=== PATIENT | male | born 1970 | race Asian ===

== ENCOUNTER 2024-07-10 04:11 | Emergency (ER) | payer BC, SELFPAY ==
[2024-07-10 04:16] VITALS: BP 127/99; BMI 28.0
[2024-07-10 04:50] LABS: Hematocrit 42.7 % (39.0-52.0); Hemoglobin 15.2 g/dL (13.0-18.0); Mean Corp Hgb Conc. 35.6 g/dL (33.0-37.0); Mean Corpuscular Hgb 31.8 pg (27.0-31.0); Mean Corpuscular Volume 89.3 fL (80.0-94.0); Mean Platelet Volume 9.9 fL (7.4-10.4); Platelet Count 195 10^3/uL (130-400); Red Blood Cell Count 4.78 10^6/uL (4.70-6.10); Red Cell Dist. Width 12.8 % (11.5-14.5); White Blood Cell Count 5.7 10^3/uL (4.8-10.8)
[2024-07-10 05:00] VITALS: BP 118/84
[2024-07-10 05:07] LABS: ALT (SGPT) 28 U/L (0-50); AST (SGOT) 29 U/L (17-59); Albumin 4.1 g/dl (3.5-5.0); Alkaline Phosphatase 49 U/L (38-126); Blood Urea Nitrogen 21 mg/dl (9-20); Calcium 9.5 mg/dl (8.4-10.2); Carbon Dioxide 28 mmol/L (22-30); Chloride 102 mmol/L (98-107); Estimated Creatinine Clearance 86 ml/min; Glucose 98 mg/dl (70-99); Potassium 4.2 mmol/L (3.5-5.1); Sodium 140 mmol/L (135-145); Total Protein 6.9 g/dl (6.3-8.2); eGFR > 60.00
--- NOTE | 2024-07-10 05:15 | ED.GENMED ---
History of Present Illness
General
Chief Complaint: Chest Pain
Source: patient and previous hospital records
Exam Limitations: none
Time Seen by Provider: 07/10/24 04:43
Nursing documentation reviewed up to this point in time: agreed with
History of Present Illness
History of Present Illness:
This is a 54-year-old gentleman who has history of hypertension, CAD with prior history of non-STEMI 2013 underwent stenting to the LAD at that time. Most recent hospitalization for chest pain 2018, unremarkable troponins and nuclear stress test
was negative at that time. He follows regularly with logistics tech and reports an unremarkable routine follow-up with his logistics tech, Dr. Dominguez recently.
Tonight he awoke at 3:45 AM with somewhat abrupt onset of lower substernal chest pressure and a sense of difficulty taking a deep breath with increased substernal chest pain with deep breath. Initial brief diaphoresis resolved and he also noted
mild nausea but no vomiting. Initial chest pain seem to radiate to his right arm but denies neck pain or back pain. Continues with some substernal chest pain but no further arm pain nor nausea he does still continue with increased chest discomfort
with deep breath but denies feeling short of breath.
He admits to eating spicy crabs for dinner last night.
Past History
Past History
ED Past Medical History: CAD, HTN (White coat syndrome), Hypercholesterolemia and HI (Non-STEMI 2012); Negative NIDDM
ED Past Surgical History: Cardiac (PTCA with stent to the LAD 2012)
Social History
Tobacco: Non-smoker
Alcohol: Occasional
Personal:
Living: with family
Employment: Employed
Family History
Family History: Other (Colon cancer stomach cancer, lung cancer, colon polyps)
Phy Exam
Physical Exam
Physical Exam:
GENERAL: 54-year-old gentleman appears his stated age, awake and alert, pleasant, appears in no acute distress. is accompanying.
EYE: anicteric
NECK: Supple, nontender, no meningismus, no significant adenopathy.
ENT: oral mucosa is moist. No rhinorrhea.
CARDIAC: Regular rate and rhythm. no murmur. No palpable chest wall tenderness.
LUNGS: Clear breath sounds bilaterally, no acute respiratory distress, no wheezes/rales/rhonchi. Full and equal excursion bilaterally.
ABDOMEN: Soft, nondistended, without focal tenderness, no r/g, normoactive BS.
NEUROLOGICAL: Alert and oriented x3, no focal neuro deficits. Gait is steady.
SKIN: Warm and dry, normal color, skin intact. No rash.
MUSCULOSKELETAL: No C/C/E. peripheral pulses are full and equal b/l. No palpable tenderness.
PSYCH: Normal and appropriate interaction.
Scores
Heart Score for Chest Pain Patients
STEMI patient?: No
History: Slightly or Non-Suspicious
ECG: Normal
Age: >45 - <65 years
Risk Factors: >/= 3 Risk Factors or History of CAD
Troponin: </= Normal Limit
Heart Score for Chest Pain Patients: 3
Heart Score Risk: 2.5% MACE over next 6 weeks
Course
Orders/Labs/Results
Orders:
Orders
07/10/24 04:12
ECG [Electrocardiogram (*1)] Urgent
Reason for Study: Chest Pain
EKG- Treatment ONCE
07/10/24 04:22
Complete Blood Count/With Diff Urgent
Comprehensive Metabolic Panel Urgent
Manual Differential Urgent
Troponin I Urgent
07/10/24 05:14
Aspirin Chewable [Low Strength Aspirin] 324 mg PO NOW STA
CR Chest - 2 Views Urgent
Comment:
Reason For Exam: acute SSCP, SOB
07/10/24 05:15
Mag Hydrox/Al Hydrox/Simeth [Maalox] 30 ml Phenobarb/Hyoscy/Atropine/Scop [] 10 ml Viscous Lidocaine 2% [Xylocaine Viscous Cup] 10 ml PO NOW
07/10/24 05:21
Mag Hydrox/Al Hydrox/Simeth [Maalox] 30 ml .ROUTE .STK-MED ONE
Phenobarb/Hyoscy/Atropine/Scop [] 10 ml .ROUTE .STK-MED ONE
Viscous Lidocaine 2% [Xylocaine Viscous Cup] 15 ml .ROUTE .STK-MED ONE
07/10/24 06:45
Electrocardiogram (*1) Urgent
Reason for Study: Chest Pain
EKG- Treatment ONCE
Troponin I Urgent
Abnormal Lab Results
07/10/24
04:22
MCH 31.8 H pg
(27.0-31.0)
Segmented Neutrophils 36 L %
(42-75)
BUN 21 H mg/dl
(9-20)
07/10/24 04:22
07/10/24 04:22
Vital Signs
Initial and Last Documented VS:
Initial Vital Signs
Temp Pulse Resp BP Pulse Ox
98.2 F 66 14 127/99 97
07/10/24 04:16 07/10/24 04:16 07/10/24 04:16 07/10/24 04:16 07/10/24 04:16
Last Documented Vital Signs
Temp Pulse Resp BP Pulse Ox
98.2 F 61 11 131/90 96
07/10/24 04:16 07/10/24 06:10 07/10/24 06:10 07/10/24 06:10 07/10/24 05:00
MDM/Problems Addressed
Differential Diagnosis Includes:
Concern for ACS, GERD, biliary colic, pneumonia, pleurisy.
EKG is reassuring, within normal limits and unchanged from previous.
Upon review of records when patient suffered non-STEMI he was noted to have significant EKG changes with flipped T waves inferiorly and mildly elevated ST segment bilaterally. None of these changes noted on today's EKG.
Will give 324 mg chewable aspirin and then trial GI cocktail.
Labs are pending and will plan for chest x-ray.
Chronic conditions affecting care: HTN, CAD and Other (Hyperlipidemia)
*Radiology
Radiology exam reviewed: preliminary read by ED provider ( Chest x-ray is unremarkable, unchanged from previous)
*Pulse Oximetry
Patient hypoxic: no
*EKG
Interpreted by ED Provider?: Yes
Interpretation: normal
Comparison EKG: no changes
Rate: normal
Rhythm: sinus
[place]: normal axis
Interval: normal interval
QRS Pattern: normal QRS
Ischemia: no ischemia
*It Consultant Interpretation
Rate: normal
Interpretation: normal
Rhythm: sinus
*Critical Care Note
Total Time (30-74mins, 75-104mins- exclusive of procedures): Not Applicable
Update Note
Update Note:
07/10/2024 0630 AM
Initial labs are unremarkable, negative troponin.
Chest x-ray is unremarkable, clear lung blackburn, normal heart size, normal mediastinum.
Patient reports relief of chest discomfort after GI cocktail. Resting comfortably.
Due to history of CAD we will plan to repeat EKG and troponin at 6:45 AM. If negative will plan to discharge to home with follow-up with cardiology.
Recommend he avoid spicy, fried foods.
ED Attending Note
-
Portions of this chart may have been created with voice recognition software.� Occasional wrong word or��sound alike� substitutions may have occurred due to the inherent limitations of voice recognition software.
Discharge Plan
Departure
Patient with high blood pressure during this ER visit?: No
Condition: Good
Discharge Problem:
Chest pain
Instructions: Chest Pain CBC Follow Up
Prescriptions:
No Action
aspirin 81 MG tablet,chewable
81 mg PO DAILY
atorvastatin 20 MG tablet
20 mg PO QPM
lisinopril-hydrochlorothiazide 10-12.5 mg Tablet
1 tab PO DAILY
Referrals:
UNKNOWN - PT DOES,NOT KNOW [Unknown Provider] -
Interventions
Interventions:
*Risk Screen - Suicide Last Done: 07/10/24 04:16
*General Assessment Last Done: 07/10/24 04:16
*Neglect/Abuse Screening Last Done: 07/10/24 04:16
ED- Fall Risk Assessment Last Done: 07/10/24 04:33
*ED COVID-19 Vaccine History Last Done: 07/10/24 04:16
ED- Cardiac Assessment Last Done: 07/10/24 04:33
Discharge Date and Time
Print Language: [place]
[2024-07-10 05:17] LABS: Atypical Lymphocytes 6 %; Band Neutrophils 0 % (0-3); Eosinophils 4 % (0-6); Lymphocytes 49 % (20-51); Monocytes 5 % (2-9); Platelets Checked Yes; Segmented Neutrophils 36 % (42-75); Troponin I < 0.012 ng/ml
[2024-07-10] MEDS: LOW STRENGTH ASPIRIN 324 MG PO (05:17)
[2024-07-10 05:18] LABS: Normal RBC Morphology Yes; Total Cells Counted 100
[2024-07-10] MEDS: MAALOX 50 PO (05:22)
[2024-07-10 06:10] VITALS: BP 131/90
[2024-07-10 07:00] VITALS: BP 122/79
[2024-07-10 07:12] LABS: Troponin I < 0.012 ng/ml
[2024-07-10 08:00] VITALS: BP 108/85
== END 2024-07-10 09:17 | disposition home or self-care (01) ==
LOC: EMR 04:11
PROVIDERS: EMERGENCY PHYSICIAN Emergency Medicine; FAMILY PHYSICIAN Internal Medicine
DX: R07.89 Other chest pain (principal); R11.0 Nausea; M79.601 Pain in right arm; R53.81 Other malaise; I25.10 Atherosclerotic heart disease of native coronary artery without angina pectoris; I10 Essential (primary) hypertension; E78.00 Pure hypercholesterolemia, unspecified; I25.2 Old myocardial infarction; Z95.5 Presence of coronary angioplasty implant and graft
CPT/HCPCS: 99284; 71046; 80053; 84484; 85025; 93005

== ENCOUNTER → 2024-08-07 06:22 | Day surgery (SDC) | payer BC, SELFPAY | LOC: GI 06:22 | PROVIDERS: ATTENDING PHYSICIAN Internal Medicine Gastroenterology | DX: Z12.11 Encounter for screening for malignant neoplasm of colon (principal); Z86.010 Personal history of colon polyps; K57.30 Diverticulosis of large intestine without perforation or abscess without bleeding; K64.8 Other hemorrhoids | CPT/HCPCS: G0105 ==